=== PATIENT | male | born 1935 | race Caucasian/White ===

== ENCOUNTER 2016-11-22 17:45 | Emergency (ER) | payer MEDICARE, BC ==
[2016-11-22 18:21] VITALS: BP 103/85
--- NOTE | 2016-11-22 21:06 | UC ---
Lower Extremity/Ankle HPI - HPI Summary HPI Summary: OVER A WEEK OF LEFT GROIN PAIN. STARTED AFTER STANDING FOR ABOUT 90 MINUTES OUTSIDE IN THE FREEZING COLD WAITING FOR A PARADE. WAS SHIVERING VIOLENTLY AND HAD TO LEAVE TO WARM UP. SINCE THEN ALSO HAS HAD INTERMITTENT LOW GRADE FEVER. TODAY WAS 101. PCP SAID IT WAS VIRAL. HAD SOME LOOSE STOOLS THAT HAVE RESOLVED. GROIN PAIN IS WORSE WHEN AMBULATING. BETTER WHEN RESTING. - History of Current Complaint Chief Complaint: UCLowerExtremity Stated Complaint: LEG COMPLAINT Time Seen by Provider: 11/22/16 20:59 Hx Obtained From: Patient, Family/Tail Puller - Onset/Duration: Gradual Onset, Lasting Weeks, Still Present Severity Initially: Moderate Severity Currently: Moderate Pain Intensity: 7 Pain Scale Used: 0-10 Numeric Aggravating Factor(s): Ambulation Alleviating Factor(s): Rest Able to Bear Weight: Yes - Allergies/Home Medications Allergies/Adverse Reactions: Allergies Allergy/AdvReac Type Severity Reaction Status Date / Time pollen Allergy Eyes Uncoded 11/22/16 18:21 Itchy/Swollen/Red/Watery SEASONAL Allergy EXTRA Uncoded 11/22/16 18:21 PHLEGM PRODUCTION Home Medications: Home Medications Acetaminophen TAB* [Tylenol TAB*] 11/22/16 [History] PMH/Surg Hx/FS Hx/Imm Hx Cardiovascular History Of: Reports: Cardiac Disorders, Hypertension - CONTROL WITH MEDS Respiratory History Of: Denies: Asthma GI/ History Of: Reports: Kidney Stones - RIGHT - Surgical History Surgical History: Yes Surgery Procedure, Year, and Place: 2005 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 2006 HEART CATHERIZATION, [facility] [place]. [place]AR[place]OMY, [place]. BLADDER CANCER (TUMOR) REMOVED, [facility] [place]. 2007 LEFT CATARACT EXTRACTION WITH IOL IMPLANT, [facility] [place]. 2014 PARATHYROIDECTOMY, [facility] [place] - Family History Known Family History: Negative: Blood Disorder - Social History Alcohol Use: None Substance Use Type: None Smoking Status (MU): Former Smoker Type: Cigarettes Amount Used/How Often: 2 PPD Length of Time of Smoking/Using Tobacco: 10 YEARS Have You Smoked in the Last Year: No When Did the Patient Quit Smoking/Using Tobacco: 1970 Review of Systems Constitutional: Fever, Chills, Fatigue Respiratory: Negative Cardiovascular: Negative Gastrointestinal: Negative Genitourinary: Negative Musculoskeletal: Edema, Other: - GROIN PAIN All Other Systems Reviewed And Are Negative: Yes Physical Exam Triage Information Reviewed: Yes Appearance: Well-Appearing, No Pain Distress, Well-Nourished Vital Signs: Initial Vital Signs Temp 98.8 F 11/22/16 18:17 Pulse 74 11/22/16 18:17 Resp 18 11/22/16 18:17 BP 103/85 11/22/16 18:17 Pulse Ox 98 11/22/16 18:17 Vital Signs Reviewed: Yes Eyes: Positive: Conjunctiva Clear ENT: Positive: Hearing grossly normal Neck: Positive: Supple Respiratory Exam: Normal Cardiovascular: Positive: Other: - IRREGULAR Abdomen Description: Positive: Soft Musculoskeletal: Positive: Edema @ - 2+ PITTING EDEMA BILATERAL ANKLES, Other: - TTP LEFT GROIN. NO CALF TENDERNESS. NEG HOMANS Neurological: Positive: Alert Psychological: Positive: Normal Response To Family, Age Appropriate Behavior Skin: Negative: rashes Lower Extremity Course/Dx - Course Course Of Treatment: WILL CHECK CBC AND CMP TO FURTHER EVALUATE INTERMITTENT FEVER. LEFT LEG PAIN C/W ACUTE GROIN STRAIN. TYLENOL NEEDED. STRETCH AND REST. FOLLOW-UP PCP. - Differential Dx/Diagnosis Provider Diagnoses: 1. LEFT GROIN STRAIN. 2. FEVER, NOS Discharge - Discharge Plan Condition: Stable Disposition: HOME Patient Education Materials: Fever in Adults (ED), Groin Strain (ED) Referrals: Christopher Tavares MD [Primary Care Provider] - 2 Days Additional Instructions: WILL CHECK CBC AND CMP TO FURTHER EVALUATE INTERMITTENT FEVER. LEFT LEG PAIN CONSISTENT WITH ACUTE GROIN STRAIN. TYLENOL NEEDED. STRETCH AND REST. FOLLOW- UP PCP. GO TO THE ER WITHOUT FAIL IF YOU DEVELOP LEFT LEG NUMBNESS, WEAKNESS IN ONE SIDE OF BODY, SPEECH DIFFICULTY, NAUSEA/VOMITING, DIZZINESS, CONFUSION OR ANY OTHER CONCERNING SYMPTOMS.
[2016-11-23 10:39] LABS: Hematocrit 32 % (42-52); Hemoglobin 10.4 g/dl (14.0-18.0); Mean Corpuscular HGB Conc 33 g/dl (31-36); Mean Corpuscular Hemoglobin 28 pg (27-31); Mean Corpuscular Volume 86 fL (80-94); Mean Platelet Volume 9 um3 (7.4-10.4); Red Blood Count 3.68 10^6/ul (4.0-5.4); Red Cell Distribution Width 15 % (10.5-15); White Blood Count 10.8 10^3/ul (3.5-10.8)
[2016-11-23 10:45] LABS: Add Diff/Slide Review? Slide Review Added; Comments Flag Yes
[2016-11-23 11:05] LABS: Albumin 3.4 g/dL (3.2-5.2); BUN/Creatinine Ratio 15.9 (8-20); Calcium 8.8 mg/dL (8.6-10.3); EGFR African American 33.7 (>60); EGFR Non-African American 26.2 (>60); Globulin 3.7 g/dL (2-4); Potassium 4.8 mmol/L (3.5-5.0); Total Bilirubin 0.8 mg/dL (0.2-1.0); Total Protein 7.1 g/dL (6.4-8.9)
== END 2016-11-22 21:43 | disposition home or self-care (01) ==
LOC: UCEAST 17:45
DX: S39.011A Strain of muscle, fascia and tendon of abdomen, initial encounter (principal); X58.XXXA Exposure to other specified factors, initial encounter; Y93.89 Activity, other specified; Y92.89 Other specified places as the place of occurrence of the external cause; R50.9 Fever, unspecified; I10 Essential (primary) hypertension; Z95.2 Presence of prosthetic heart valve; Z98.42 Cataract extraction status, left eye; Z96.1 Presence of intraocular lens; Z85.51 Personal history of malignant neoplasm of bladder; Z87.891 Personal history of nicotine dependence
CPT/HCPCS: 36415; 80053; 85025; 99211; G0463

== ENCOUNTER 2016-11-25 02:34 | Emergency (ER) | payer MEDICARE, BC ==
[~2016-11-25 02:34] MED LIST: Atropine SYRINGE* 0.1 MG/ML 10 ML SYRINGE (1 MG) ONE; EPINEPHrine SYR 0.1 MG/ML* (1:10,000) SYRINGE ONE
[2016-11-25] MEDS ORDERED: EPINEPHrine SYR 0.1 MG/ML* (1:10,000) SYRINGE ONE ×2 (03:12→03:52)
[2016-11-25 03:47] LABS: Add Diff/Slide Review? Slide Review Added; Comments Flag Yes; Hematocrit 26 % (42-52); Hemoglobin 7.5 g/dl (14.0-18.0); Mean Corpuscular HGB Conc 29 g/dl (31-36); Mean Corpuscular Hemoglobin 28 pg (27-31); Mean Corpuscular Volume 96 fL (80-94); Mean Platelet Volume 8 um3 (7.4-10.4); Red Blood Count 2.72 10^6/ul (4.0-5.4); Red Cell Distribution Width 17 % (10.5-15); White Blood Count 7.4 10^3/ul (3.5-10.8)
[2016-11-25 03:50] LABS: AST 683 U/L (13-39); Albumin 2.3 g/dL (3.2-5.2); Alkaline Phosphatase 134 U/L (34-104); BUN/Creatinine Ratio 13.4 (8-20); Blood Urea Nitrogen 44 mg/dL (6-24); CO2 Carbon Dioxide 17 mmol/L (22-32); Calcium 7.9 mg/dL (8.6-10.3); Chloride 108 mmol/L (101-111); EGFR African American 23.4 (>60); EGFR Non-African American 18.2 (>60); Globulin 2.8 g/dL (2-4); Glucose 166 mg/dL (70-100); Sodium 134 mmol/L (133-145); Total Protein 5.1 g/dL (6.4-8.9)
[2016-11-25 03:58] LABS: Anion Gap 9 mmol/L (2-11); Potassium 6.4 mmol/L (3.5-5.0)
[2016-11-25 04:10] LABS: ALT 490 U/L (7-52)
[2016-11-25 05:05] LABS: Alcohol < 10 mg/dL (<10)
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
--- NOTE | 2016-11-27 09:55 | RAD ---
INDICATION: Traumatic fall down the stairs. COMPARISON: None. TECHNIQUE: Multidetector CT images of the chest, abdomen and pelvis were obtained from the lung apices to the ischial tuberosities without intravenous contrast but with oral contrast.. CHEST: The endotracheal tube is outside of the trachea possibly communicating with the esophagus. There is subcutaneous gas overlying the left neck. There is consolidation and air bronchograms involving the dependent portion of the right lower lobe and to a lesser extent the dependent portion of the left lower lobe. Also at the right lower lobe is a 5 mm groundglass pulmonary nodule (image 43). The right lower lobe bronchus is occluded. There are no large pleural effusions. There is no mediastinal or hilar lymphadenopathy. Coarse atherosclerotic calcification of the aortic ring, coronary arteries and thoracic aorta are seen. ABDOMEN \T\ PELVIS: The liver, spleen, pancreas and adrenal glands are grossly normal in appearance. The gallbladder is normal. The kidneys are normal in appearance without focal mass, calcification or signs of hydronephrosis. Evaluation of the bowel is limited without oral contrast. There are multiple air-filled loops of small bowel measuring up to 2.7 cm in diameter. Gas and stool is seen throughout the colon. There is no gross retroperitoneal or mesenteric lymphadenopathy. The pelvic viscera is normal in appearance. The coarsely calcified abdominal aorta and iliac arteries are normal in course and diameter. There are sternotomy wires. No definite acute traumatic fractures are identified. Degenerative changes of the thoracic and lumbar spine include loss of intervertebral disc height, marginal osteophyte formation and vacuum disc phenomenon at L5/S1. Multilevel Schmorl's nodes are identified at the lumbar spine. There are no sinister bone lesions. IMPRESSION: 1. Malpositioned endotracheal tube potentially communicating with the esophagus with subcutaneous gas overlying the left neck. Prompt repositioning is advised. 2. No definite bony fracture or dislocation is identified. 3. Consolidation of the right lower lobe with occlusion of the right mainstem bronchus. Please correlate to signs and symptoms of pneumonia. 4. Mildly dilated air-filled small bowel without focal transition point characteristic of obstruction. 5. Additional chronic, degenerative and iatrogenic findings as described in the body of the report.
== END 2016-11-25 05:15 | disposition short-term general hospital (02) ==
LOC: EDUNIT# → EDBD → ED 02:34
DX: T07 Unspecified multiple injuries (principal); S12.390A Other displaced fracture of fourth cervical vertebra, initial encounter for closed fracture; S12.490A Other displaced fracture of fifth cervical vertebra, initial encounter for closed fracture; S01.01XA Laceration without foreign body of scalp, initial encounter; W10.9XXA Fall (on) (from) unspecified stairs and steps, initial encounter; Y93.89 Activity, other specified; Y92.9 Unspecified place or not applicable
CPT/HCPCS: 31500; 36415; 70450; 71250; 72125; 74176; 80053; 80320; 83605; 85025; 86850; 86900; 86901; 86922; 92950; 94002; 99285; C9132; G0480; J0171; J0461; P9040